=== PATIENT | male | born 1935 | race Caucasian/White ===

== ENCOUNTER 2016-06-25 08:33 | Emergency (ER) | payer MEDICARE ==
--- NOTE | 2016-06-25 08:59 | ERPHSYRPT ---
- History of Present Illness Time Seen by Provider: 06/25/16 08:50 Source: patient Exam Limitations: no limitations Patient Subjective Stated Complaint: PT REPORTS INJURY TO RIGHT RIBS-BEGAN COUGHING-PROGRESSIVELY WORSE-REPROTS LAST FEW DAYS YELLOW SPUTUM-UNSURE OF FEVER -REPORTS SORENESS WITH COUGHING Triage Nursing Assessment: PT PINK WARM ET [id number] IN COMPLETE SENTENCES WITH EASE-NO RETRACTIONS NOTED-LUNGS [id number] COUGH NOTED DURING TRIAGE Physician History: This is a 81-year-old white male with history of cataracts, arrhythmia, high blood pressure, GERD. Patient is arriving with complaint of shortness of breath cough productive of yellow sputum pain along the bilateral lower ribs with deep breathing. Symptoms going on for greater than a week. Patient states he fell greater than 1 week ago prior to onset of these symptoms. Patient denies any nausea vomiting diarrhea melena hematochezia Past medical history includes cataracts, arrhythmia, high blood pressure, GERD Past surgical history includes bilateral phacoemulsification, back surgery, disc repair Timing/Duration: week(s) (symptoms for one week) Modifying Factors: Improves With: nothing Associated Symptoms: shortness of breath, cough, chest pain (pain bilateral lower ribs with deep breathing), No nausea, No vomiting, No abdominal pain, No heartburn, No diaphoresis, No fever, No headaches, No loss of appetite, No malaise, No rash, No syncope, No seizure, No weakness Allergies/Adverse Reactions: No Known Drug Allergies Allergy (Verified 06/25/16 08:50) Home Medications: Aspirin EC 81 mg [Ecotrin 81 mg] 81 mg PO DAILY 01/04/13 [History] Lisinopril 10 mg [Zestril 10 MG] 40 mg PO DAILY 04/17/13 [History] Tamsulosin HCl 0.4 mg [Flomax 0.4 MG] 0.4 mg PO DAILY 04/17/13 [History] Amlodipine Besylate 5 mg [Norvasc 5 mg] 5 mg PO DAILY 06/25/16 [History] Metoprolol Succinate 50 mg [Toprol Xl 50 MG] 50 mg PO DAILY 06/25/16 [ History] Omeprazole 20 MG [Prilosec 20 mg] 20 mg PO DAILY 06/25/16 [History] Triamterene/Hydrochlorothiazid [Triamterene-Hctz 37.5-25 mg Cp] 1 tab PO DAILY 06/25/16 [History] Hx Tetanus, Diphtheria Vaccination/Date Given: No Hx Influenza Vaccination/Date Given: Yes Hx Pneumococcal Vaccination/Date Given: No Immunizations Up to Date: Yes - Review of Systems Constitutional: No Fever, No Chills Eyes: No Symptoms Ears, Nose, & Throat: No Symptoms Respiratory: Cough, Dyspnea, Other (pain bilateral lower ribs with deep breathing) Cardiac: Chest Pain (Pain bilateral lower ribs with deep breathing) Abdominal/Gastrointestinal: No Abdominal Pain, No Nausea, No Vomiting, No Diarrhea Genitourinary Symptoms: No Dysuria Musculoskeletal: No Back Pain, No Neck Pain Skin: No Rash Neurological: No Dizziness, No Focal Weakness, No Sensory Changes Psychological: No Symptoms Endocrine: No Symptoms All Other Systems: Reviewed and Negative - Past Medical History Pertinent Past Medical History: Yes Neurological History: No Pertinent History ENT History: Cataracts Cardiac History: Arrhythmia, Hypertension Respiratory History: No Pertinent History Endocrine Medical History: No Pertinent History Musculoskeletal History: No Pertinent History GI Medical History: GERD History: No Pertinent History Psycho-Social History: No Pertinent History Male Reproductive Disorders: No Pertinent History Other Medical History: sydnee phaco with IOL - Past Surgical History Past Surgical History: Yes Neuro Surgical History: Other Cardiac: No Pertinent History Respiratory: No Pertinent History Gastrointestinal: No Pertinent History Genitourinary: No Pertinent History Musculoskeletal: Orthopedic Surgery Male Surgical History: Vasectomy Other Surgical History: 2 back surgeries/disc repair 1972,1977, - Social History Smoking Status: Former smoker Exposure to second hand smoke: No Drug Use: none Patient Lives Alone: No - Nursing Vital Signs Nursing Vital Signs: Initial Vital Signs Temperature 97.8 F Temperature Source Oral Pulse Rate 125 Respiratory Rate 20 Blood Pressure [] 90/59 Pain Intensity 0 - Physical Exam General Appearance: no apparent distress, alert Eye Exam: PERRL/EOMI, eyes nml inspection Ears, Nose, Throat Exam: normal ENT inspection, TMs normal, pharynx normal, moist mucous membranes Neck Exam: normal inspection, non-tender, supple, full range of motion Respiratory Exam: normal breath sounds, lungs clear, No respiratory distress Cardiovascular Exam: regular rate/rhythm, normal heart sounds, normal peripheral pulses Gastrointestinal/Abdomen Exam: soft, normal bowel sounds, No tenderness, No mass Back Exam: normal inspection, normal range of motion, No CVA tenderness, No vertebral tenderness Extremity Exam: normal inspection, normal range of motion, pelvis stable Neurologic Exam: alert, oriented x 3, cooperative, normal mood/affect, nml cerebellar function, nml station & gait, sensation nml, No motor deficits Skin Exam: normal color, warm, dry, No rash Lymphatic Exam: No adenopathy SpO2 Interpretation: normal (95%) SpO2: 95 Oxygen Delivery: Room Air - Course Nursing assessment & vital signs reviewed: Yes EKG Interpreted by Me: RATE (107 bpm), A-fib, NORMAL AXIS, Other (EKG, atrial fibrillation, 107 beats per minute, normal axis, no acute ST or T wave changes noted) - Radiology Exams Chest X-ray Interpretation: Discussed w/ radiologist, Other (chest x-ray: Calcified granuloma, subtle left lower lobe infiltrate/atelectasis) Ordered Tests: Active Orders 24 hr Category Date Time Status Popcorn Machine Operator STAT Care 06/25/16 08:55 Active EKG-ER Only STAT Care 06/25/16 08:55 Active IV Insertion STAT Care 06/25/16 08:55 Active Pulse Oximetry (ED) STAT Care 06/25/16 08:55 Active CHEST 2 VIEWS (PA AND LAT) Stat Exams 06/25/16 08:55 Completed BLOOD CULTURE Stat Lab 06/25/16 10:00 Received CBC W DIFF Stat Lab 06/25/16 09:06 Completed CMP Stat Lab 06/25/16 09:06 Completed CULTURE,SPUTUM Stat Lab 06/25/16 10:10 Ordered Manual Differential NC Stat Lab 06/25/16 09:06 Completed NT PRO BNP Stat Lab 06/25/16 09:06 Completed TROPONIN Stat Lab 06/25/16 09:06 Completed Medication Summary Generic Name Dose Route Start Last Admin Trade Name Freq PRN Reason Stop Dose Admin Furosemide 40 mg 06/25/16 12:01 Lasix 40 Mg/4 Ml IV 06/25/16 12:02 STAT ONE Discontinued Medications Generic Name Dose Route Start Last Admin Trade Name Freq PRN Reason Stop Dose Admin Aspirin 243 mg 06/25/16 10:08 06/25/16 10:11 Baby Aspirin 81 Mg Chew PO 06/25/16 10:09 243 mg STAT ONE Administration Aspirin Confirm 06/25/16 10:11 Baby Aspirin 81 Mg Chew Administered 06/25/16 10:12 Dose 243 mg .ROUTE .STK-MED ONE Ceftriaxone Sodium/Dextrose 50 mls @ 100 mls/hr 06/25/16 09:43 06/25/16 10:02 Rocephin 1 Gm-D5w 50 Ml Bag IV 06/25/16 10:12 100 mls/hr STAT ONE Administration Ceftriaxone Sodium/Dextrose Confirm 06/25/16 09:57 Rocephin 1 Gm-D5w 50 Ml Bag Administered 06/25/16 09:58 Dose 50 mls @ ud IV .STK-MED ONE Lab/Rad Data: Laboratory Result Diagrams 06/25/16 09:06 06/25/16 09:06 Laboratory Results 06/25/16 06/25/16 Range/Units 09:06 09:06 WBC 12.5 H (4.0-10.5) K/mm3 RBC 4.18 (4.1-5.6) M/mm3 Hgb 12.9 (12.5-18.0) gm/dl Hct 40.1 L (42-50) % MCV 95.9 (78-100) fl MCH 30.9 (26-32) pg MCHC 32.2 (32-36) g/dl RDW 14.3 H (11.5-14.0) % Plt Count 285 (150-450) K/mm3 MPV 9.6 H (6-9.5) fl Segmented Neutrophils 67 H (36.-66.) % Band Neutrophils 11 H (0.0-2.0) % Lymphocytes (Manual) 9 L (24-44) % Monocytes (Manual) 13 H (0.0-12.0) % Differential Comment NORMAL Platelet Estimate NORMAL (NORMAL) Sodium 140 (136-145) mEq/L Potassium 4.2 (3.5-5.1) mEq/L Chloride 102 (98-107) mEq/L Carbon Dioxide 25.6 (21-32) mEq/L Anion Gap 16.7 H (5-15) MEQ/L BUN 28 H (9-20) mg/dL Creatinine 1.78 H (0.55-1.30) mg/dl Estimated GFR 39 ML/MIN Glucose 136 H (70-110) MG/DL Calcium 9.1 (8.5-10.1) mg/dL Total Bilirubin 0.9 (0.2-1.0) mg/dL AST 27 (15-37) U/L ALT 21 (12-78) U/L Alkaline Phosphatase 119 H (46-116) U/L Troponin I 0.099 H* (0.000-0.056) ng/ml NT-Pro-B Natriuret Pep 2332 H (0-450) pg/ml Serum Total Protein 7.1 (6.4-8.2) gm/dL Albumin 2.6 L (3.4-5.0) g/dL - Progress Progress: improved Progress Note: 06/25/16 10:09 81-year-old white male arrives with complaint of a cough for over a week. He states he's been having pain in the lower anterior chest bilaterally worse with breathing for over 2 weeks. He states his cough was initially with white sputum and then began to be yellow sputum he is not really complaining of shortness of breath. Patient's EKG shows atrial fibrillation no acute the ST or T wave changes . Patient's BNP is elevated at 2332 patient's troponin is elevated at 0.099 Patient with subtle left lower lobe infiltrate versus atelectasis on chest x- ray. Patient with no chest pain at this time other than with deep breathing. Will discuss case with Dr. Andrade 06/25/16 10:13 06/25/16 11:54 Case is discussed with Dr. Andrade he felt that the patient has a atrial fibrillation which at times is rapid response, appears to have a congestive heart failure as well as possible pneumonia. He requested that I refer the patient to cardiology and the patient be transferred where admissions coordinator would be available. I discussed the case with Dr. Mendoza tube through [facility] one call, He has accepted the patient for transfer to [facility] Diagnosis CHF, pneumonia. Patient has received Rocephin 1 g IV he is also received aspirin 243 mg by mouth. Patient will be given Lasix 40 mg IV. Will transfer as soon as bed is available - Departure Time of Disposition: 11:56 Departure Disposition: Transfer ([facility] Dr Mendoza) Clinical Impression: Elevated troponin CHF (congestive heart failure) Qualifiers: Congestive heart failure type: unspecified congestive heart failure type Congestive heart failure chronicity: unspecified congestive heart failure chronicity Qualified Code(s): I50.9 - Heart failure, unspecified Pneumonia Qualifiers: Pneumonia type: due to unspecified organism Laterality: left Lung location: lower lobe of lung Qualified Code(s): J18.1 - Lobar pneumonia, unspecified organism Atrial fibrillation Qualifiers: Atrial fibrillation type: unspecified Qualified Code(s): I48.91 - Unspecified atrial fibrillation Condition: Fair Critical Care Time: No Referrals: ZAHEER ANDRADE [Primary Care Provider] - Instructions: Heart Failure
[2016-06-25 09:11] LABS: Mean Cell Volume 95.9 fl (78-100); Mean Corpuscular Hemoglobin 30.9 pg (26-32); Mean Platelet Volume 9.6 fl (6-9.5); Platelet Count 285 K/mm3 (150-450); Red Blood Count 4.18 M/mm3 (4.1-5.6); Red Cell Distribution Width 14.3 % (11.5-14.0); White Blood Count 12.5 K/mm3 (4.0-10.5)
[2016-06-25 09:31] LABS: BAND 11 % (0.0-2.0); Platelet Estimate NORMAL (NORMAL); Total Cells Counted 100
--- NOTE | 2016-06-25 09:37 | XRAY ---
Indication: Cough and short of breath for 2 weeks. Comparison: June 18, 2016. PA/lateral chest again demonstrates calcified granulomas with interval developing subtle left lower lobe infiltrate/atelectasis. Remaining heart and lungs stable and negative.
[2016-06-25] MEDS ORDERED: ROCEPHIN 1 Gm-D5w 50 ml Bag** 50 ML IV ONE ×2 (09:43→09:57)
[2016-06-25 09:44] LABS: ALBUMIN 2.6 g/dL (3.4-5.0); ANION GAP 16.7 MEQ/L (5-15); BILIRUBIN,TOTAL 0.9 mg/dL (0.2-1.0); Carbon Dioxide 25.6 mEq/L (21-32); Potassium 4.2 mEq/L (3.5-5.1); Total Protein 7.1 gm/dL (6.4-8.2)
[2016-06-25 09:48] LABS: TROPONIN 0.099 ng/ml (0.000-0.056)
[2016-06-25] MEDS ORDERED: BABY ASPIRIN 81 MG CHEW PO ONE (10:08)
[2016-06-25] MEDS ORDERED: BABY ASPIRIN 81 MG CHEW ONE (10:11)
[2016-06-25 11:55] VITALS: BP 90/59; PULSE 125
[2016-06-25 11:59] VITALS: O2SAT 95
[2016-06-25] MEDS ORDERED: Lasix 40 MG/4 ML IV ONE (12:01)
[2016-06-25] MEDS ORDERED: Lasix 40 MG/4 ML ONE (12:03)
== END 2016-06-25 12:30 | disposition short-term general hospital (02) ==
LOC: ED 08:33
DX: I50.9 Heart failure, unspecified (principal); J18.9 Pneumonia, unspecified organism; I48.91 Unspecified atrial fibrillation; I10 Essential (primary) hypertension; K21.9 Gastro-esophageal reflux disease without esophagitis; Z79.899 Other long term (current) drug therapy
CPT/HCPCS: 36000; 36415; 71020; 80053; 83880; 84484; 85025; 87040; 87070; 87077; 93005; 93041; 96365; 96374; 99284; 99285; J0696; J1940; A9270-GY